=== PATIENT | male | born 1945 | race Caucasian/White ===

== ENCOUNTER → 2017-08-15 | Day surgery (SDC) | payer MEDICARE ==
[~2017-08-15] MED LIST: AMLODIPINE BESY10 MG PO; CARVEDILOL3.125 MG PO; CYCLOBENZAPRINE10 MG PO; EPHEDRINE SULFATE INJ 50 MG/10 ML SYR ONE; FENTANYL CITRATE/PF 100MCG/2 ML INJ ONE; FLUOXETINE HCL20 MG PO; GENERLAC10 GM/15 M; HYOSCYAMINE SULFATE 0.5 MG/ML AMP ONE; ISOSORBIDE MONO30 MG PO; LEVOTHYROXINE100 MC1 PO; LOSARTAN POTAS100 MG PO; LOVASTATIN40 MG PO; METFORMIN HCL500 MG PO; MIDAZOLAM HCL 2 MG/2 ML VIAL ONE; PHENYLEPHRINE HCL 1% 10 MG/ML VIAL ONE; PROPOFOL IV EMULSION 10 MG/ML 50 ML VIAL ONE; TAMSULOSIN HCL0.4 MG PO; VENTOLIN HFA18 GM
[2017-08-15 11:09] LABS: BASOPHILS # (AUTO) 0.1 (0.0-0.1); BASOPHILS % 0.8 % (0.0-1.0); EOSINOPHILS # (AUTO) 0.1 (0.0-0.4); EOSINOPHILS % 1.1 % (0.0-6.0); HEMATOCRIT 35.8 % (38.2-49.6); HEMOGLOBIN 10.6 g/dL (14.0-18.0); LYMPHOCYTES # (AUTO) 2.1 (1.0-3.2); LYMPHOCYTES % 24.8 % (18.0-39.1); MEAN CORPUSCULAR HEMOGLOBIN 25.5 pg (28-32); MEAN CORPUSCULAR HGB CONC 29.6 g/dL (31-35); MEAN CORPUSCULAR VOLUME 86.1 fL (81-99); MONOCYTES # (AUTO) 0.7 (0.2-0.8); MONOCYTES % 8.7 % (4.4-11.3); NEUTROPHILS # (AUTO) 5.4 (2.1-6.9); NEUTROPHILS % 63.9 % (38.7-80.0); PLATELET COUNT 498 x10e3/uL (140-360); RED BLOOD COUNT 4.16 x10e6/uL (4.3-5.7); RED CELL DISTRIBUTION WIDTH 17.2 % (11.7-14.4)
--- NOTE | 2017-08-15 13:12 | Operative Report ---
DATE OF PROCEDURE: August 15, 2017 REFERRING PHYSICIAN: Dr. Jay Lepe PROCEDURES PERFORMED 1. Esophagogastroduodenoscopy with biopsies. 2. Colonoscopy with polypectomy. INDICATIONS FOR EGD: Heartburn, indigestion. INDICATIONS FOR COLONOSCOPY: Colorectal cancer screening, anemia. MEDICATION: Patient was done under MAC. Please see anesthesiologist's note. PROCEDURE: With the patient in the left lateral decubitus position, the flexible fiberoptic Olympus gastroscope was introduced into the esophagus under direct visualization without any difficulty. There was some patchy erythema noted in the distal esophagus. The scope was then advanced with ease into the stomach, traversing a large hiatal hernia measured at 5 cm. The mucosa overlying the antrum revealed some patchy erythema and mild to moderate edema, and biopsies were obtained and sent to stain for H. pylori. Gastric ulcer was noted approximately 6 mm in size, and that was biopsied. Also, an erosion was noted in the body of the stomach without active bleeding. The pylorus was of normal contour and shape. It was intubated with ease, and the scope was advanced all the way to the 2nd portion of the duodenum. The scope was then withdrawn slowly. Mucosa overlying the proximal 2nd portion and the duodenal bulb appeared to be within normal limits. The scope was then withdrawn back into the stomach and retroflexed, and the previously described hiatal hernia was also noted in the retroflexed position. The scope was then straightened out. The stomach was decompressed. Scope was subsequently withdrawn. Patient tolerated the procedure well. IMPRESSION 1. Distal esophagitis. 2. Large, approximately 5 cm, hiatal hernia. 3. Gastritis, biopsied. Biopsies sent to stain for H. pylori. 4. Gastric ulcer, body, without active bleeding, biopsied. PLAN: Follow up histology. Initiate Protonix 40 mg 1 p.o. q.a.m. a.c. The patient was then turned around. After adequate lubrication of the anal canal, a flexible fiberoptic Olympus colonoscope was inserted into the rectum with ease and advanced all the way to the cecum. The mucosa overlying the cecum appeared to be within normal limits. The scope was then withdrawn slowly. One polyp was snared and 1 polyp was hot biopsied from the ascending colon. The transverse grossly appeared to be within normal limits. One polyp was snared from the descending colon. Diverticular disease was noted to involve the distal descending and the sigmoid colon. One polyp was snared from the sigmoid colon. The rectum appeared to be within normal limits. The scope was then retroflexed into the distal rectum, and moderate-size internal hemorrhoids were noted, none of which was actively bleeding. The scope was then straightened out. It was subsequently withdrawn. Patient tolerated the procedure well. IMPRESSION 1. Ascending colon polyp times 2, one snared and one hot biopsied. 2. Descending colon polyp times 1, snared. 3. Diverticulosis. 4. Sigmoid colon polyp times 1, snared. 5. Internal hemorrhoids, none actively bleeding. PLAN: Follow up histology. Initiate high-fiber, low-fat diet. Initiate high-fiber supplement. Patient will need to have a followup colonoscopy in 3 years. Job#: [id number] cc:JONNY LEPE DO
== END | disposition home or self-care (01) ==
LOC: ENDO 10:14
PROVIDERS: ATTEND Internal Medicine Gastroenterology
DX: K21.9 Gastro-esophageal reflux disease without esophagitis (principal); D12.2 Benign neoplasm of ascending colon; D12.4 Benign neoplasm of descending colon; K29.70 Gastritis, unspecified, without bleeding; K25.9 Gastric ulcer, unspecified as acute or chronic, without hemorrhage or perforation; K20.9 Esophagitis, unspecified; K44.9 Diaphragmatic hernia without obstruction or gangrene; K57.30 Diverticulosis of large intestine without perforation or abscess without bleeding; K64.8 Other hemorrhoids; D64.9 Anemia, unspecified; M19.90 Unspecified osteoarthritis, unspecified site; J45.909 Unspecified asthma, uncomplicated; I10 Essential (primary) hypertension; I25.810 Atherosclerosis of coronary artery bypass graft(s) without angina pectoris; E11.9 Type 2 diabetes mellitus without complications; E03.9 Hypothyroidism, unspecified; N40.0 Benign prostatic hyperplasia without lower urinary tract symptoms; I25.2 Old myocardial infarction; F32.9 Major depressive disorder, single episode, unspecified; Z95.1 Presence of aortocoronary bypass graft; Z96.651 Presence of right artificial knee joint
CPT/HCPCS: 36415; 43239; 45384; 45385; 82948; 85025; 93005; J1980; J2250; J2370

== ENCOUNTER 2017-08-26 06:16 | Inpatient (IN) | payer MEDICARE ==
[2017-08-23 09:31] LABS: BASOPHILS # (AUTO) 0.1 (0.0-0.1); BASOPHILS % 0.6 % (0.0-1.0); EOSINOPHILS # (AUTO) 0.1 (0.0-0.4); EOSINOPHILS % 1.3 % (0.0-6.0); HEMATOCRIT 31.8 % (38.2-49.6); HEMOGLOBIN 9.5 g/dL (14.0-18.0); LYMPHOCYTES # (AUTO) 1.9 (1.0-3.2); LYMPHOCYTES % 20.7 % (18.0-39.1); MEAN CORPUSCULAR HEMOGLOBIN 25.3 pg (28-32); MEAN CORPUSCULAR HGB CONC 29.9 g/dL (31-35); MEAN CORPUSCULAR VOLUME 84.6 fL (81-99); MONOCYTES # (AUTO) 0.6 (0.2-0.8); MONOCYTES % 6.9 % (4.4-11.3); NEUTROPHILS # (AUTO) 6.5 (2.1-6.9); PLATELET COUNT 365 x10e3/uL (140-360); RED BLOOD COUNT 3.76 x10e6/uL (4.3-5.7); RED CELL DISTRIBUTION WIDTH 16.9 % (11.7-14.4)
[2017-08-23 09:55] LABS: ALANINE AMINOTRANSFERASE 9 IU/L (0-55); ALBUMIN/GLOBULIN RATIO 0.8 (0.8-2.0); ALKALINE PHOSPHATASE 56 IU/L (40-150); ANION GAP 16.3 mmol/L (8-16); BLOOD UREA NITROGEN 12 mg/dL (7-26); BUN/CREATININE RATIO 13 (6-25); CALCIUM 8.5 mg/dL (8.4-10.2); CARBON DIOXIDE 24 mmol/L (22-29); CHLORIDE 109 mmol/L (98-107); CHOL/HDL RATIO 2.3 (3.9-4.7); CHOLESTEROL 128 MD/DL (0-199); CREATININE, SERUM 0.92 mg/dL (0.72-1.25); EST GLOMERULAR FILTRATION RATE > 60 ML/MIN (60-); GLUCOSE 143 mg/dL (74-118); HDL CHOLESTEROL 55 MG/DL (40-60); LDL CHOLESTEROL 53 MG/DL (60-130); POTASSIUM 4.3 mmol/L (3.5-5.1); SODIUM 145 mmol/L (136-145); TRIGLYCERIDES 99 MG/DL (0-149)
[~2017-08-26] VITALS: Ht 170.2 cm; Wt 85.3 kg
[~2017-08-26 06:16] MED LIST changes: -EPHEDRINE SULFATE INJ 50 MG/10 ML SYR ONE; -FENTANYL CITRATE/PF 100MCG/2 ML INJ ONE; -HYOSCYAMINE SULFATE 0.5 MG/ML AMP ONE; -MIDAZOLAM HCL 2 MG/2 ML VIAL ONE; -PHENYLEPHRINE HCL 1% 10 MG/ML VIAL ONE; -PROPOFOL IV EMULSION 10 MG/ML 50 ML VIAL ONE
[2017-08-26 06:32] VITALS: BP 121/74
[2017-08-26] MEDS ORDERED: HEPARIN SOD (PORCINE) 1000 UNIT/ML 30ML ONE (07:00)
[2017-08-26] MEDS ORDERED: LIDOCAINE HCL 2% LOCAL 20 ML VIAL ONE ×2 (07:00→08:09)
[2017-08-26] MEDS ORDERED: NITROGLYCERIN/D5W 200 MCG/ML 250 ML ONE (07:01)
[2017-08-26] MEDS ORDERED: SODIUM CHLORIDE 0.9% 1000ML 1,000 ML ONE (07:01)
[2017-08-26] MEDS ORDERED: HEPARIN SOD/SOD CHLORIDE 2,000 ML ONE (07:01)
[2017-08-26] MEDS ORDERED: IOPAMIDOL 370 MG/ML 200 ML INFUS..BTL INJ ONE ×2 (07:01→08:18)
[2017-08-26 07:02] VITALS: BP 121/74
[2017-08-26] MEDS ORDERED: ALPRAZOLAM 0.5 MG TAB ONE (07:10)
[2017-08-26] MEDS ORDERED: DIPHENHYDRAMINE HCL 25 MG CAP ONE (07:10)
[2017-08-26] MEDS ORDERED: ALPRAZOLAM 0.5 MG TAB PO ONE (07:15)
[2017-08-26] MEDS ORDERED: DIPHENHYDRAMINE HCL 25 MG CAP PO ONE (07:15)
[2017-08-26] MEDS ORDERED: MIDAZOLAM HCL 2 MG/2 ML VIAL ONE ×2 (07:47→08:13)
[2017-08-26] MEDS ORDERED: FENTANYL CITRATE/PF 100MCG/2 ML INJ ONE (07:47)
[2017-08-26] MEDS ORDERED: HYDROCODONE/APAP 5MG-325MG TAB PO PRN (08:45)
[2017-08-26] MEDS ORDERED: MORPHINE SULFATE 4 MG/ML SYR IV PRN (08:45)
[2017-08-26] MEDS ORDERED: ONDANSETRON HCL INJ 2 MG/ML VIAL IV PRN (08:45)
[2017-08-26] MEDS ORDERED: ALBUTEROL SULFATE HFA 8GM INHALATION AEROSOL INH PRN (08:45)
[2017-08-26] MEDS ORDERED: ACETAMINOPHEN 325 MG TAB PO PRN (08:45)
[2017-08-26] MEDS: METFORMIN HCL 500 MG TAB PO SCH ×2 (09:00→17:29)
[2017-08-26] MEDS: CARVEDILOL 3.125 MG TAB PO SCH ×2 (09:00→17:29)
[2017-08-26] MEDS: LEVOTHYROXINE SODIUM 100 MCG/VIAL IV SCH (09:00)
[2017-08-26] MEDS ORDERED: MORPHINE SULFATE 2 MG/ML SYR IV PRN (09:00)
--- NOTE | 2017-08-26 10:39 | Operative Report ---
DATE OF PROCEDURE: August 26, 2017 INDICATIONS: Coronary artery disease with acute abnormal stress test and fgqif-td-ntypnyp systolic heart failure. PROCEDURES PERFORMED 1. Left heart catheterization. 2. Selective coronary angiography. 3. Selective cannulation of 1 arterial and 3 venous bypass conduits. 4. Deployment of right groin Perclose. COMPLICATIONS: None. RECOMMENDATIONS: AICD placement. Access was obtained in the right femoral artery. A 6-Amharic sheath was placed. Diagnostic coronary angiogram revealed patent left main. Left anterior descending artery is occluded proximally. Circumflex had mild disease. Obtuse marginal branches were occluded. Right coronary artery had a long tubular mid 50% stenosis with excellent flow. The left internal mammary artery bypass to the left anterior descending artery was patent. However, squaxin vessel had diffuse disease. Saphenous vein bypass graft to obtuse marginal branch was widely patent. Two saphenous vein bypasses were occluded. Right groin repaired using Perclose. Patient admitted to the hospital for AICD placement. Job#: [id number] OR
[2017-08-26] MEDS: AMLODIPINE BESYLATE 10 MG TAB PO SCH (17:28)
[2017-08-26] MEDS: FLUOXETINE HCL 20 MG CAP PO SCH (17:28)
[2017-08-26] MEDS: CYCLOBENZAPRINE HCL 10 MG TAB PO SCH (17:28)
[2017-08-26] MEDS: TAMSULOSIN HCL 0.4 MG CAP PO SCH (17:28)
[2017-08-26] MEDS: LOSARTAN POTASSIUM 100 MG TAB PO SCH (17:28)
[2017-08-26] MEDS: ISOSORBIDE MONONITRATE 30 MG TAB CR PO SCH (17:28)
[2017-08-26 20:00] VITALS: BP 119/73
[2017-08-26 20:07] VITALS: BP 121/55
[2017-08-26] MEDS: SIMVASTATIN 20 MG TAB PO SCH (20:55)
[2017-08-26] MEDS: ZOLPIDEM TARTRATE 5 MG TAB PO PRN (20:55)
--- NOTE | 2017-08-26 21:12 | Consultation ---
DATE OF CONSULTATION: August 26, 2017 REFERRING PHYSICIAN: Dr. Raza. REASON FOR CONSULTATION: Cardiomyopathy, consider a defibrillator. HISTORY OF PRESENT ILLNESS: This is a 72-year-old gentleman with history of hypertension, diabetes mellitus, history of coronary artery disease, status post bypass surgery in . He had a myocardial infarction in 2009 and underwent second coronary bypass surgery in 2009, congestive heart failure class 3 with dyspnea with minimal exertion and also, chronic ischemic cardiomyopathy with ejection fraction 28%. He underwent heart catheterization by Dr. Raza. There was no recommendation for percutaneous coronary intervention. We were consulted to consider a defibrillator. The patient also has chronic left bundle branch block with QRS duration 140 milliseconds. Denies chest pain. Denies syncope or cardiac arrest. REVIEW OF SYSTEMS: CONSTITUTIONAL: Negative. CARDIOVASCULAR: As per HPI. RESPIRATORY: Negative. GASTROINTESTINAL: Negative. GENITOURINARY: Negative. MUSCULOSKELETAL: Negative. EYES: Negative. ENT: Negative. ALLERGY/IMMUNOLOGY: Negative. PSYCHIATRIC: Negative. PAST MEDICAL HISTORY: Hypertension, cardiomyopathy. PAST SURGICAL HISTORY: Coronary bypass surgery in 2009. FAMILY HISTORY: No premature coronary artery disease. SOCIAL HISTORY: No smoking, alcohol or illicit drugs. PHYSICAL EXAMINATION VITAL SIGNS: Blood pressure 130/60, pulse 70, respirations 20, O2 sat 98%. GENERAL: In no acute distress. HEENT: Moist mucous membranes. CARDIOVASCULAR: Regular. RESPIRATORY: Clear bilaterally. ABDOMEN: Soft, nontender. MUSCULOSKELETAL: 2+ distal pulses. NEUROLOGIC: No focal deficits. SKIN: No lesions. PSYCHIATRIC: Normal thought process. EKG sinus rhythm, left bundle branch block. IMPRESSION 1. Chronic ischemic cardiomyopathy, ejection fraction 28%, refractory to medical therapy. 2. Congestive heart failure, class 3. He is on beta blockers and ARB. 3. Left bundle branch block. 4. History of myocardial infarction in 2009, coronary bypass surgery in 2009. RECOMMENDATIONS: Had a long discussion with the patient. He has indication for ICD for primary prevention of sudden cardiac , also SAWMILL WORKER. The procedure was explained in detail with benefits and risks. The patient voices understanding and wishes to proceed. Will plan for a biventricular cardiac defibrillator. Thank you for letting us participate in Mr. Agustin's health care. Job#: [id number]
[2017-08-27] VITALS (7 sets, daily range): BP systolic 101–141; BP diastolic 55–82
[2017-08-27 06:50] LABS: BASOPHILS # (AUTO) 0.1 (0.0-0.1); BASOPHILS % 0.6 % (0.0-1.0); EOSINOPHILS # (AUTO) 0.1 (0.0-0.4); EOSINOPHILS % 0.7 % (0.0-6.0); HEMATOCRIT 28.1 % (38.2-49.6); HEMOGLOBIN 8.5 g/dL (14.0-18.0); LYMPHOCYTES # (AUTO) 1.5 (1.0-3.2); LYMPHOCYTES % 18.2 % (18.0-39.1); MEAN CORPUSCULAR HEMOGLOBIN 25.1 pg (28-32); MEAN CORPUSCULAR HGB CONC 30.2 g/dL (31-35); MEAN CORPUSCULAR VOLUME 82.9 fL (81-99); MONOCYTES # (AUTO) 0.9 (0.2-0.8); MONOCYTES % 10.9 % (4.4-11.3); NEUTROPHILS # (AUTO) 5.8 (2.1-6.9); PLATELET COUNT 296 x10e3/uL (140-360); RED BLOOD COUNT 3.39 x10e6/uL (4.3-5.7); RED CELL DISTRIBUTION WIDTH 16.8 % (11.7-14.4)
[2017-08-27 07:10] LABS: ANION GAP 13.7 mmol/L (8-16); BLOOD UREA NITROGEN 12 mg/dL (7-26); BUN/CREATININE RATIO 13 (6-25); CALCIUM 8.4 mg/dL (8.4-10.2); CARBON DIOXIDE 24 mmol/L (22-29); CHLORIDE 105 mmol/L (98-107); CREATININE, SERUM 0.91 mg/dL (0.72-1.25); EST GLOMERULAR FILTRATION RATE > 60 ML/MIN (60-); GLUCOSE 142 mg/dL (74-118); POTASSIUM 3.7 mmol/L (3.5-5.1); SODIUM 139 mmol/L (136-145)
[2017-08-27] MEDS: METFORMIN HCL 500 MG TAB PO SCH ×2 (08:00→17:54)
[2017-08-27] MEDS: CARVEDILOL 3.125 MG TAB PO SCH ×2 (09:00→17:54)
[2017-08-27] MEDS: AMLODIPINE BESYLATE 10 MG TAB PO SCH (09:00)
[2017-08-27] MEDS: ISOSORBIDE MONONITRATE 30 MG TAB CR PO SCH (09:00)
[2017-08-27] MEDS: CYCLOBENZAPRINE HCL 10 MG TAB PO SCH (10:25)
[2017-08-27] MEDS: TAMSULOSIN HCL 0.4 MG CAP PO SCH (10:25)
[2017-08-27] MEDS: LOSARTAN POTASSIUM 100 MG TAB PO SCH (10:25)
[2017-08-27] MEDS: FLUOXETINE HCL 20 MG CAP PO SCH (10:26)
[2017-08-27] MEDS: LEVOTHYROXINE SODIUM 100 MCG/VIAL IV SCH (11:59)
[2017-08-27] MEDS ORDERED: BACITRACIN 50,000 UNIT VIAL ONE (14:53)
[2017-08-27] MEDS ORDERED: MIDAZOLAM HCL 2 MG/2 ML VIAL ONE ×3 (14:53→16:29)
[2017-08-27] MEDS ORDERED: FENTANYL CITRATE/PF 100MCG/2 ML INJ ONE ×2 (14:53→16:29)
[2017-08-27] MEDS ORDERED: SODIUM CHLORIDE 0.9% 500ML 500 ML ONE (14:54)
[2017-08-27] MEDS ORDERED: SODIUM CHLORIDE 0.9% 1000ML 2,000 ML ONE (14:54)
[2017-08-27] MEDS ORDERED: LIDOCAINE HCL 2% LOCAL 20 ML VIAL ONE ×2 (14:54→15:43)
[2017-08-27] MEDS ORDERED: HEPARIN SOD/SOD CHLORIDE 1,000 ML ONE (15:18)
[2017-08-27] MEDS ORDERED: IOPAMIDOL 370 MG/ML 200 ML INFUS..BTL INJ ONE (15:25)
[2017-08-27] MEDS ORDERED: VANCOMYCIN 1GM/NS 250 ML 250 ML ONE (15:28)
--- NOTE | 2017-08-27 16:13 | Progress Note ---
DATE: August 27, 2017 CARDIOLOGY PROGRESS NOTE: SUBJECTIVE: Mr. Agustin feels better. His shortness of breath is improving. OBJECTIVE VITAL SIGNS: Afebrile. Heart rate 84. Blood pressure 112/78. O2 sat is 96%. CARDIOVASCULAR: Regular rhythm. Systolic murmur. S3 gallop. LUNGS: Occasional crackles at bilateral bases. CARDIOVASCULAR MEDICATIONS: Reviewed. Telemetry shows sinus rhythm with PVCs. Hemoglobin is 8.5. Serum creatinine is normal. ASSESSMENT: Acute on chronic systolic heart failure with coronary artery disease. PLAN: Biventricular AICD placement today for cardiac resynchronization. Current cardiac medications are appropriate. Maintain on telemetry. Anemia workup as an outpatient. Job#: [id number] EV
[2017-08-27] MEDS: SIMVASTATIN 20 MG TAB PO SCH (20:47)
[2017-08-27] MEDS: ZOLPIDEM TARTRATE 5 MG TAB PO PRN (20:48)
[2017-08-28] VITALS: BP 137/89
[2017-08-28 00:25] VITALS: BP 125/70
[2017-08-28 04:00] VITALS: BP 129/75
[2017-08-28 07:30] VITALS: BP 137/90
[2017-08-28 08:00] VITALS: BP 137/90
[2017-08-28] MEDS: METFORMIN HCL 500 MG TAB PO SCH (08:00)
[2017-08-28] MEDS: CARVEDILOL 3.125 MG TAB PO SCH (09:00)
[2017-08-28] MEDS: LOSARTAN POTASSIUM 100 MG TAB PO SCH (09:00)
[2017-08-28] MEDS: CYCLOBENZAPRINE HCL 10 MG TAB PO SCH (09:00)
[2017-08-28] MEDS: LEVOTHYROXINE SODIUM 100 MCG/VIAL IV SCH (09:00)
[2017-08-28] MEDS: FLUOXETINE HCL 20 MG CAP PO SCH (09:00)
[2017-08-28] MEDS: AMLODIPINE BESYLATE 10 MG TAB PO SCH (09:00)
[2017-08-28] MEDS: ISOSORBIDE MONONITRATE 30 MG TAB CR PO SCH (09:00)
[2017-08-28] MEDS: TAMSULOSIN HCL 0.4 MG CAP PO SCH (09:00)
[2017-08-28 12:00] VITALS: BP 122/82
--- NOTE | 2017-08-28 14:47 | Discharge Summary ---
ADMISSION DIAGNOSIS: Fjtac-rq-[id number] systolic heart failure. DISCHARGE DIAGNOSIS: Ujvjz-mt-tggtglb systolic heart failure. COMORBID CONDITIONS 1. Coronary artery disease, status post coronary artery bypass graft x2. 2. Hypertension. CONSULTATION: Electrophysiology, Dr. Hudson. PROCEDURES 1. Cardiac catheterization. 2. Biventricular implantable cardioverter-defibrillator implantation. HISTORY OF PRESENT ILLNESS AND HOSPITAL COURSE: This is a 72-year-old man with history of hypertension, diabetes, coronary artery disease status post redo CABG, and chronic systolic heart failure, who was admitted with edwaa-rv-hsebhla systolic heart failure. He underwent cardiac catheterization without recommendations for revascularization. EP was consulted for AICD implantation, which he had this admission without complications. He was discharged home in stable condition the following day after ICD interrogation with normal function. FOLLOWUP 1. Dr. Raza in [address] Hudson in 2 weeks. MEDICATIONS: Please see discharge medication list. RESTRICTIONS: Arm restrictions per EP. DIET: Heart-healthy low-sodium diabetic diet. PHYSICAL EXAMINATION VITAL SIGNS: Reviewed. GENERAL: Awake, alert, in no acute distress. LUNGS: Clear to auscultation bilaterally. No wheezes or crackles. CARDIOVASCULAR: Normal rate, regular rhythm. No murmur. Normal S1 and S2. ABDOMEN: Soft, nontender. EXTREMITIES: 2+ pitting edema. TELEMETRY: V-paced. NEREIDA MORELAND MD Job#: [id number] EV
--- NOTE | 2017-08-28 15:28 | Operative Report ---
DATE OF PROCEDURE: August 27, 2017 POSTOPERATIVE DIAGNOSES 1. Ischemic cardiomyopathy, ejection fraction 25 to 30%, refractory to medical therapy. 2. Congestive heart failure, class 3. 3. Left bundle branch block. 4. History of myocardial infarction 2009. 5. History of coronary artery bypass surgery, 2009. POSTOPERATIVE DIAGNOSES 1. Ischemic cardiomyopathy, ejection fraction 25 to 30%, refractory to medical therapy. 2. Congestive heart failure, class 3. 3. Left bundle branch block. 4. History of myocardial infarction 2009. 5. History of coronary artery bypass surgery, 2009. PROCEDURES PERFORMED: Biventricular cardiac defibrillator implant. ESTIMATED BLOOD LOSS: 5 mL. COMPLICATIONS: None. DESCRIPTION OF PROCEDURE: After informed consent was obtained, patient was brought to the electrophysiology laboratory in a fasting, nonsedated state. Area over his chest was prepped and draped in the usual sterile fashion. Moderate sedation and prophylactic antibiotic were given. Lidocaine 1% was used as local anesthetic, and a 3-cm skin incision was made in the left subclavicular area. Electrocautery, sharp, and blunt dissection were used to reach the muscular fascia, and a pocket was created for eventual implantation of the device. Vascular access was obtained times 3 in the left axillary vein using modified Seldinger technique under fluoroscopic guidance. The 6-Bahraini, 9-Bahraini, and 9.5-Bahraini sheaths were placed. The ventricular lead advanced to the RV apex. R-wave 6, pacing 0.5 at 0.5. Coronary sinus was successfully cannulated using AL2 catheter and Wholey wire. CS angiogram showed a good posterolateral branch, successfully cannulated, and the lead was advanced and placed in this branch. The patient's threshold 0.8 at 0.5, impedance 700. The atrial lead to the right atrial appendage P wave 3.5, pacing 0.6 at 0.5, impedance 597. Old sheaths were removed from the body. Leads were secured to fascia using 0 silk. Pocket was irrigated with antibiotic solution using pulse mechanical engineer. Hemostasis was meticulous. Leads were connected to the device and the entire ICD system placed in the pocket. Incision was closed using Vicryl and Dermabond. Patient tolerated the procedure well. Procedure deemed complete. SUMMARY OF HARDWARE IMPLANTED 1. The new defibrillator is [employer], model #G158, [id number]. 2. The atrial lead is [employer], 7740, [id number]. 3. The right ventricular lead is [employer], 8470, [id number]. 4. The left ventricular lead is [employer], 4884, 201634. IMPRESSION: Successful biventricular cardiac defibrillator implant. PLAN 1. Routine postop monitoring in telemetry bed. 2. Chest x-ray. 3. Followup in 2 weeks. Job#: [id number] CF MTDD
== END 2017-08-28 12:29 | disposition home or self-care (01) | DRG 223 ==
LOC: CATH LAB 06:16 → MED/SURG3 16:05
PROVIDERS: ADMIT Internal Medicine Interventional Cardiology; ATTEND Internal Medicine Interventional Cardiology
PROC: 4A023N7 Measurement of Cardiac Sampling and Pressure, Left Heart, Percutaneous Approach (ICD-10-PCS; 2017-08-26)
PROC: B2111ZZ Fluoroscopy of Multiple Coronary Arteries using Low Osmolar Contrast (ICD-10-PCS; 2017-08-26)
PROC: B2181ZZ Fluoroscopy of Left Internal Mammary Bypass Graft using Low Osmolar Contrast (ICD-10-PCS; 2017-08-26)
PROC: B2131ZZ Fluoroscopy of Multiple Coronary Artery Bypass Grafts using Low Osmolar Contrast (ICD-10-PCS; 2017-08-26)
PROC: 0JH609Z Insertion of Cardiac Resynchronization Defibrillator Pulse Generator into Chest Subcutaneous Tissue and Fascia, Open Approach (ICD-10-PCS; principal; 2017-08-28)
PROC: 02HK3KZ Insertion of Defibrillator Lead into Right Ventricle, Percutaneous Approach (ICD-10-PCS; 2017-08-28)
PROC: 02H63KZ Insertion of Defibrillator Lead into Right Atrium, Percutaneous Approach (ICD-10-PCS; 2017-08-28)
PROC: 02HL3KZ Insertion of Defibrillator Lead into Left Ventricle, Percutaneous Approach (ICD-10-PCS; 2017-08-28)
DX: I11.0 Hypertensive heart disease with heart failure (principal); I44.7 Left bundle-branch block, unspecified; E11.9 Type 2 diabetes mellitus without complications; I25.5 Ischemic cardiomyopathy; I25.10 Atherosclerotic heart disease of native coronary artery without angina pectoris; I50.23 Acute on chronic systolic (congestive) heart failure; Z95.1 Presence of aortocoronary bypass graft; J45.909 Unspecified asthma, uncomplicated; I25.2 Old myocardial infarction; M19.90 Unspecified osteoarthritis, unspecified site; Z88.0 Allergy status to penicillin; Z28.21 Immunization not carried out because of patient refusal
CPT/HCPCS: 33224; 33231; 36140; 36415; 77001; 77002; 80048; 80053; 80061; 82948; 85025; 93459; C1769; J1644; J2001; J2250; J3370; J7030; J7040; Q9967

== ENCOUNTER 2017-11-09 11:38 | Emergency (ER) | payer MEDICARE ==
[~2017-11-09] VITALS: Ht 170.2 cm; Wt 85.3 kg
--- OUTSIDE RECORDS SUMMARY | 2017-11-09 11:41 | XMS REPORT | Continuity of Care Document ---
Author Author [facility] Organization [facility] Address [address] [place] [address] Phone Unavailable Care Team Providers Care Tsa Screener Name Role Phone JONNY LEPE DO PCP Insurance Providers Guarantor Dillan Agustin Address [address] [phone] Email NA Payer [employer] Medicare Complete Policy Number [id number] Subscriber's Name Dillan Agustin Relationship 18 Self / Same As Patient Group Number [id number] Effective Date 17 Advance Directives Directive Response Recorded Date/Time Does the patient have an advance directive? No 08/26/17 8:01pm If yes, is advance directive on file with [facility]? No 08/26/17 8:01pm If not on file with [facility] will patient provide a copy? No 08/26/17 8:01pm Do you have a Directive to Physician? No 08/23/17 8:56am Do you have a Medical Power of Dude Wrangler? No 08/23/17 8:56am Do you have an out of hospital Do Not Resuscitate Order? No 08/23/17 8:56am Do you have any special needs we should be aware of? No 08/23/17 8:56am Do you have a support person here with you today? Yes 08/23/17 8:56am Did patient receive Notice of Privacy Practices? Yes 08/23/17 8:56am Did patient receive patient rights and responsibilities? Yes 08/23/17 8:56am Problems No problem information available. Medications Current Home Medications Medication Dose Units Route Directions Days Qty Instructions Start Date Albuterol Sulfate (Ventolin Hfa) 18 Gm Hfa.aer.ad As Needed Amlodipine Besylate 10 Mg Tablet 10 Mg Oral Daily 30 Tab Carvedilol 3.125 Mg Tablet 6.25 Mg Oral Twice A Day 60 Tab Cyclobenzaprine Hcl 10 Mg Tablet 5 Mg Oral Daily Fluoxetine Hcl 20 Mg Capsule 40 Mg Oral Daily 30 Cap Isosorbide Mononitrate (Isosorbide Mononitrate Er) 30 Mg Tab.er.24h 30 Mg Oral Daily 30 Tab Lactulose (Generlac) 10 Gm/15 Ml Solution As Needed Levothyroxine Sodium 100 Mcg Vial 100 Mcg Oral Daily Losartan Potassium 100 Mg Tablet 100 Mg Oral Daily Lovastatin 40 Mg Tablet 1 Tab Oral Daily THERAPEUTICALLY SUBSTITUTED WITH SIMVASTATIN 20MG Metformin Hcl 500 Mg Tablet 500 Mg Oral Twice A Day 60 Tab Tamsulosin Hcl 0.4 Mg Cap.er.24h 0.4 Mg Oral Daily Social History Social History Problem Response Recorded Date/Time Onset Date Status Hx Psychiatric Problems No 08/26/2017 8:01pm Not Applicable Not Applicable Hx Eating Disorder No 08/26/2017 8:01pm Not Applicable Not Applicable Hx Substance Use Disorder No 08/26/2017 8:01pm Not Applicable Not Applicable Hx Depression No 08/26/2017 8:01pm Not Applicable Not Applicable Hx Alcohol Use No 08/26/2017 8:01pm Not Applicable Not Applicable Hx Substance Use Treatment No 08/26/2017 8:01pm Not Applicable Not Applicable Hx Physical Abuse No 08/26/2017 8:01pm Not Applicable Not Applicable Smoking Status Start Date Stop Date Former smoker Hospital Discharge Instructions No hospital discharge instruction information available. Plan of Care Discharge Date 08/28/17 12:29pm Disposition HOME, SELF-CARE Instructions/Education Provided Pacemaker Prescriptions See Medication Section Referrals ADARSH YIN MD (Cardiology) Entered Date: 08/28/2017 9:51am Address: [facility] [address] [place] [address] Additional Instructions/Education NO HEAVY LIFTING,KEEP DRSG IN PLACE FOR ONE WEEK Functional Status Query Response Date Recorded Assistive Devices None August 26, 2017 8:07pm Ambulation Ability Standby Assistance 1 person assist August 26, 2017 8:07pm Toileting Ability Minimum Assistance August 27, 2017 6:43pm Allergies, Adverse Reactions, Alerts Allergen Type Severity Reaction Status Last Updated Penicillin Allergy Unknown Active 08/23/17 Immunizations No immunization information available. Vital Signs Acute Vital Signs Vital Response Date/Time Temperature (Fahrenheit) 98.6 degrees F (97.6 - 99.5) 08/28/2017 12:00pm Pulse Pulse Rate (adult) 98 bpm (60 - 90) 08/28/2017 12:00pm Respiratory Rate 20 bpm (12 - 24) 08/28/2017 12:00pm Blood Pressure 122/82 mm Hg 08/28/2017 12:00pm Height 5 ft 7 in 08/23/2017 9:27am Weight 188 lb 08/23/2017 9:27am Body Mass Index 29.4 kg/m^2 08/26/2017 8:01pm Results Laboratory Results Test Name Result Units Flags Reference Collection Date/Time Result Date/ Time Comments White Blood Count 8.42 x10e3/uL 4.8-10.8 08/27/2017 6:33am 08/27/2017 6 :52am Red Blood Count 3.39 x10e6/uL L 4.3-5.7 08/27/2017 6:33am 08/27/2017 6: 52am Hemoglobin 8.5 g/dL L 14.0-18.0 08/27/2017 6:33am 08/27/2017 6:52am Hematocrit 28.1 % L 38.2-49.6 08/27/2017 6:33am 08/27/2017 6:52am Mean Corpuscular Volume 82.9 fL 81-99 08/27/2017 6:33am 08/27/2017 6: 52am Mean Corpuscular Hemoglobin 25.1 pg L 28-32 08/27/2017 6:33am 2017 6:52am Mean Corpuscular Hemoglobin Concent 30.2 g/dL L 31-35 08/27/2017 6:33am 08/27/2017 6:52am Red Cell Distribution Width 16.8 % H 11.7-14.4 08/27/2017 6:332017 6:52am Platelet Count 296 x10e3/uL 140-360 08/27/2017 6:08/27/2017 6: 52am Neutrophils (%) (Auto) 69.0 % 38.7-80.0 08/27/2017 6:08/27/2017 6: 52am Lymphocytes (%) (Auto) 18.2 % 18.0-39.1 08/27/2017 6:08/27/2017 6: 52am Monocytes (%) (Auto) 10.9 % 4.4-11.3 08/27/2017 6:08/27/2017 6: 52am Eosinophils (%) (Auto) 0.7 % 0.0-6.0 08/27/2017 6:08/27/2017 6: 52am Basophils (%) (Auto) 0.6 % 0.0-1.0 08/27/2017 6:08/27/2017 6:52am IM GRANULOCYTES % 0.6 % 0.0-1.0 08/27/2017 6:08/27/2017 6:52am Neutrophils # (Auto) 5.8 2.1-6.9 08/27/2017 6:08/27/2017 6:52am Lymphocytes # (Auto) 1.5 1.0-3.2 08/27/2017 6:08/27/2017 6:52am Monocytes # (Auto) 0.9 H 0.2-0.8 08/27/2017 6:08/27/2017 6:52am Eosinophils # (Auto) 0.1 0.0-0.4 08/27/2017 6:am 08/27/2017 6:52am Basophils # (Auto) 0.1 0.0-0.1 08/27/2017 6:08/27/2017 6:52am Absolute Immature Granulocyte (auto 0.05 x10e3/uL 0-0.1 08/27/2017 6: 33am 08/27/2017 6:52am Sodium Level 139 mmol/L 136-145 08/27/2017 6:08/27/2017 7:12am Potassium Level 3.7 mmol/L 3.5-5.1 08/27/2017 6:33am 08/27/2017 7:12am Chloride Level 105 mmol/L 98-107 08/27/2017 6:33am 08/27/2017 7:12am Carbon Dioxide Level 24 mmol/L 22-29 08/27/2017 6:33am 08/27/2017 7: 12am Anion Gap 13.7 mmol/L 8-16 08/27/2017 6:33am 08/27/2017 7:12am Blood Urea Nitrogen 12 mg/dL 7-08/27/2017 6:33am 08/27/2017 7:12am Creatinine 0.91 mg/dL 0.72-1.25 08/27/2017 6:33am 08/27/2017 7:12am BUN/Creatinine Ratio 13 608/27/2017 6:33am 08/27/2017 7:12am Estimat Glomerular Filtration Rate > 60 ML/MIN 60- 08/27/2017 6:33 7:12am Ranges were taken from the National Kidney Disease Education Program and the National Kidney Foundation literature. Reference ranges: 60 or greater: Normal 16-59 (for 3 consecutive months): Chronic kidney disease 15 or less: Kidney failure Glucose Level 142 mg/dL H 74-118 08/27/2017 6:33am 08/27/2017 7:12am Calcium Level 8.4 mg/dL 8.4-10.2 08/27/2017 6:33am 08/27/2017 7:12am Bedside Glucose 168 mg/dL H 70-120 08/28/2017 11:20am 08/28/2017 11: 55am Meter ID: [id number] Total Bilirubin 0.5 mg/dL 0.2-1.2 08/23/2017 9:27am 08/23/2017 10:00am Aspartate Amino Transf (AST/SGOT) 16 IU/L 5-34 08/23/2017 9:27am 2017 10:00am Alanine Aminotransferase (ALT/SGPT) 9 IU/L 0-55 08/23/2017 9:27am 08/23 10:00am Total Protein 7.0 g/dL 6.5-8.1 08/23/2017 9:27am 08/23/2017 10:00am Albumin 3.0 g/dL L 3.5-5.0 08/23/2017 9:27am 08/23/2017 10:00am Globulin 4.0 g/dL H 2.3-3.5 08/23/2017 9:27am 08/23/2017 10:00am Albumin/Globulin Ratio 0.8 0.8-2.0 08/23/2017 9:27am 08/23/2017 10: 00am Alkaline Phosphatase 56 IU/L 40-150 08/23/2017 9:27am 08/23/2017 10: 00am Triglycerides Level 99 MG/DL 0-149 08/23/2017 9:27am 08/23/2017 10: 00am Cholesterol Level 128 MD/DL 0-199 08/23/2017 9:27am 08/23/2017 10:00am Less than 200 mg/dL Low Risk 201 - 239 mg/dL Borderline Risk 240 mg/dl and greater High Risk LDL Cholesterol 53 MG/DL L 60-130 08/23/2017 9:27am 08/23/2017 10:00am HDL Cholesterol 55 MG/DL 40-60 08/23/2017 9:27am 08/23/2017 10:00am Cholesterol/HDL Ratio 2.3 L 3.9-4.7 08/23/2017 9:27am 08/23/2017 10: 00am Procedures Procedure Status Date Provider(s) EGD BIOPSY SINGLE/MULTIPLE Completed 08/15/17 BRIANNA ALLAN MD COLONOSCOPY W/LESION REMOVAL Completed 08/15/17 BRIANNA ALLAN MD COLONOSCOPY W/LESION REMOVAL Completed 08/15/17 BRIANNA ALLAN MD Encounters Encounter Location Arrival/Admit Date Discharge/Depart Date Attending Provider Discharged Inpatient [facility] 08/26/17 4:05pm 08/28/17 12:29pm ADARSH YIN MD Registered Surgical Day Care [facility] 08/15/17 10:14am BRIANNA ALLAN MD
[2017-11-09] MEDS ORDERED: ONDANSETRON HCL INJ 2 MG/ML VIAL IV STA (11:42)
[2017-11-09] MEDS ORDERED: ONDANSETRON HCL 4 MG ORAL DISINTEGRATING TAB ONE (12:11)
--- NOTE | 2017-11-09 12:29 | Diagnostic Imaging Report ---
EXAMINATION: CHEST SINGLE (PORTABLE) INDICATION: Shortness of breath nausea after workout COMPARISON: None FINDINGS: AP view TUBES and LINES: AICD is intact. With 3 leads. Median sternotomy wires and mediastinal clips. LUNGS: Lungs are well inflated. There are bibasilar atelectasis. There is mild prominence of the central pulmonary vasculature, consistent with pulmonary venous congestion. PLEURA: No pleural effusion or pneumothorax. HEART AND MEDIASTINUM: Cardiac size is mildly enlarged. BONES AND SOFT TISSUES: No acute osseous lesion. Soft tissues are unremarkable. UPPER ABDOMEN: No free air under the diaphragm. IMPRESSION: Mild central pulmonary venous congestion. Mild cardiomegaly. Signed by: Dr. Joaquin Valera M.D. on 11/09/2017 12:25 PM
[2017-11-09 12:32] LABS: BASOPHILS # (AUTO) 0.1 (0.0-0.1); BASOPHILS % 0.9 % (0.0-1.0); EOSINOPHILS # (AUTO) 0.1 (0.0-0.4); EOSINOPHILS % 1.6 % (0.0-6.0); HEMATOCRIT 36.1 % (38.2-49.6); HEMOGLOBIN 10.7 g/dL (14.0-18.0); LYMPHOCYTES # (AUTO) 1.5 (1.0-3.2); LYMPHOCYTES % 26.4 % (18.0-39.1); MEAN CORPUSCULAR HGB CONC 29.6 g/dL (31-35); MEAN CORPUSCULAR VOLUME 80.9 fL (81-99); MONOCYTES # (AUTO) 0.4 (0.2-0.8); MONOCYTES % 6.6 % (4.4-11.3); NEUTROPHILS # (AUTO) 3.6 (2.1-6.9); PLATELET COUNT 152 x10e3/uL (140-360); RED BLOOD COUNT 4.46 x10e6/uL (4.3-5.7); RED CELL DISTRIBUTION WIDTH 20.3 % (11.7-14.4)
[2017-11-09 12:47] LABS: ALANINE AMINOTRANSFERASE 15 IU/L (0-55); ALBUMIN 3.6 g/dL (3.5-5.0); ALKALINE PHOSPHATASE 56 IU/L (40-150); ANION GAP 18.4 mmol/L (8-16); BLOOD UREA NITROGEN 14 mg/dL (7-26); BUN/CREATININE RATIO 14 (6-25); CALCIUM 9.5 mg/dL (8.4-10.2); CARBON DIOXIDE 16 mmol/L (22-29); CHLORIDE 109 mmol/L (98-107); CREATINE KINASE 67 IU/L (30-200); EST GLOMERULAR FILTRATION RATE > 60 ML/MIN (60-); GLUCOSE 155 mg/dL (74-118); POTASSIUM 4.4 mmol/L (3.5-5.1); SODIUM 139 mmol/L (136-145)
[2017-11-09] MEDS ORDERED: ONDANSETRON HCL 4 MG ORAL DISINTEGRATING TAB PO ONE (13:00)
== END 2017-11-09 17:12 | disposition home or self-care (01) ==
LOC: ER 11:41
DX: R55 Syncope and collapse (principal); R11.0 Nausea; I95.89 Other hypotension; I42.0 Dilated cardiomyopathy; Z95.810 Presence of automatic (implantable) cardiac defibrillator
CPT/HCPCS: 36415; 71045; 80053; 82550; 82553; 82948; 83880; 84484; 85025; 93005; 99284

== ENCOUNTER 2019-02-04 05:39 | Inpatient (IN) | payer MEDICARE ==
[2019-02-02 10:25] LABS: BASOPHILS # (AUTO) 0.1 (0.0-0.1); BASOPHILS % 0.9 % (0.0-1.0); EOSINOPHILS # (AUTO) 0.1 (0.0-0.4); EOSINOPHILS % 1.8 % (0.0-6.0); HEMATOCRIT 36.8 % (38.2-49.6); HEMOGLOBIN 11.9 g/dL (14.0-18.0); LYMPHOCYTES # (AUTO) 1.2 (1.0-3.2); LYMPHOCYTES % 22.4 % (18.0-39.1); MEAN CORPUSCULAR HEMOGLOBIN 29.9 pg (28-32); MEAN CORPUSCULAR HGB CONC 32.3 g/dL (31-35); MEAN CORPUSCULAR VOLUME 92.5 fL (81-99); MONOCYTES # (AUTO) 0.4 (0.2-0.8); MONOCYTES % 8.1 % (4.4-11.3); NEUTROPHILS # (AUTO) 3.6 (2.1-6.9); NEUTROPHILS % 66.4 % (38.7-80.0); PLATELET COUNT 210 x10e3/uL (140-360); RED BLOOD COUNT 3.98 x10e6/uL (4.3-5.7); RED CELL DISTRIBUTION WIDTH 14.6 % (11.7-14.4)
[2019-02-02 10:46] LABS: ANION GAP 15.6 mmol/L (8-16); BLOOD UREA NITROGEN 14 mg/dL (7-26); BUN/CREATININE RATIO 13 (6-25); CALCIUM 8.5 mg/dL (8.4-10.2); CARBON DIOXIDE 26 mmol/L (22-29); CHLORIDE 106 mmol/L (98-107); CREATININE, SERUM 1.09 mg/dL (0.72-1.25); EST GLOMERULAR FILTRATION RATE > 60 ML/MIN (60-); GLUCOSE 163 mg/dL (74-118); POTASSIUM 3.6 mmol/L (3.5-5.1); SODIUM 144 mmol/L (136-145)
--- NOTE | 2019-02-02 12:06 | Diagnostic Imaging Report ---
EXAMINATION: CHEST 2 VIEWS INDICATION: Pre-operative COMPARISON: Chest radiograph of 11/09/2017 FINDINGS: TUBES and LINES: Left chest AICD with leads projecting over the right atrium and right ventricle. LUNGS: The lungs are moderately inflated. No focal consolidation or pulmonary edema. Scattered calcified granulomas bilaterally, measuring up to 9 mm. PLEURA: No pleural effusion or pneumothorax. HEART AND MEDIASTINUM: Postoperative findings of CABG with intact sternotomy wires. BONES AND SOFT TISSUES: No acute fracture or dislocation. UPPER ABDOMEN: No free air under the diaphragm. IMPRESSION: No focal pneumonia or pulmonary edema. Signed by: Eugenia Betts MD on 02/02/2019 12:03 PM
[~2019-02-04] VITALS: Ht 170.2 cm; Wt 91.6 kg
[~2019-02-04 05:39] MED LIST changes: +ACETAMINOPHEN325 M1 PO; +ASPIRIN81 MG PO; +CALCIUM MG ZINC; +PANTOPRAZOLE SO40 MG PO; -VENTOLIN HFA18 GM; +VENTOLIN HFA18 GM INH; +[UNRECOGNIZED DRUG - MIXTURE] PO
--- OUTSIDE RECORDS SUMMARY | 2019-02-04 05:42 | XMS REPORT ---
Author Author [facility] Address Unknown Phone Unavailable Care Team Providers Care Dentist Name Role Phone WILLIE MONTESINOS Unavailable Unavailable Marcelle WALKER Unavailable Unavailable Problems This patient has no known problems. Allergies, Adverse Reactions, Alerts This patient has no known allergies or adverse reactions. Medications This patient has no known medications. Results Test Description Test Time Test Comments Text Results Atomic Results Result Comments CHEST 2 VIEWS 2019-02-02 12:01:00 [facility] [address] [place] [address] Patient Name: MATY TERRY MR #: [id number] : 1945 Age/Sex: 73/M Req #: [id number] Adm Physician: Ordered by: WILLIE MONTESINOS MD Report #: [id number] Location: OR Room/Bed: Procedure: [id number] DX/CHEST 2 VIEWS Exam Date: 02/02/19 Exam Time: 1032 REPORT STATUS: Signed EXAMINATION: CHEST 2 VIEWS INDICATION: Pre-operative COMPARISON: Chest radiograph of 11/09/2017 FINDINGS: TUBES and LINES: Left chest AICD with leads projecting over the right atrium and right ventricle. LUNGS: The lungs are moderately inflated. No focal consolidation or pulmonary edema. Scattered calcified granulomas bilaterally, measuring up to 9 mm. PLEURA: No pleural effusion or pneumothorax. HEART AND MEDIASTINUM: Postoperative findings of CABG with intact sternotomy wires. BONES AND SOFT TISSUES: No acute fracture or dislocation. UPPER ABDOMEN: No free air under the diaphragm. IMPRESSION: No focal pneumonia or pulmonary edema. Signed by: Blaze Ibrahim MD on 02/02/2019 12:03 PM Dictated By: BLAZE IBRAHIM MD 120 Transcribed By: JERSEY on 02/02/19 1203 COPY TO: WILLIE MONTESINOS MD CHEST SINGLE (PORTABLE) [place] [address] Patient Name: MATY TERRY MR #: [id number] : 1945 Age/Sex: 72/M Req #: [id number] Adm Physician: Ordered by: JENNY WALKER MD Report #: [id number] Location: ER Room/Bed: Procedure: [id number] DX/CHEST SINGLE (PORTABLE) Exam Date: 11/09/17 Exam Time: 1215 REPORT STATUS: Signed EXAMINATION: CHEST SINGLE (PORTABLE) INDICATION: Shortness of breath nausea after workout COMPARISON: None FINDINGS: AP view TUBES and LINES: AICD is intact. With 3 leads. Median sternotomy wires and mediastinal clips. LUNGS: Lungs are well inflated. There are bibasilar atelectasis. There is mild prominence of the central pulmonary vasculature, consistent with pulmonary venous congestion. PLEURA: No pleural effusion or pneumothorax. HEART AND MEDIASTINUM: Cardiac size is mildly enlarged. BONES AND SOFT TISSUES: No acute osseous lesion. Soft tissues are unremarkable. UPPER ABDOMEN: No free air under the diaphragm. IMPRESSION: Mild central pulmonary venous congestion. Mild cardiomegaly. Signed by: Dr. Kali Calderon M.D. on 11/09/2017 12:25 PM Dictated By: KALI CALDERON MD 1225 Transcribed By: JERSEY on 11/09/17 1225 COPY TO: JENNY WALKER MD
[2019-02-04] MEDS ORDERED: SODIUM CHLORIDE 0.9% 1000ML 1,000 ML ONE (06:23)
[2019-02-04] MEDS ORDERED: GENTAMICIN 80MG/NS 100 ML 200 ML IV ONE (06:23)
[2019-02-04] MEDS ORDERED: LEVOFLOXACIN 500MG/D5W 100ML 100 ML IV ONE (06:23)
[2019-02-04] MEDS ORDERED: B&O 60MG R/S 60 MG SUPP PR ONE (06:45)
[2019-02-04] MEDS ORDERED: IOPAMIDOL 610MG/1ML 300 MG/ML VIAL IV ONE (06:45)
--- NOTE | 2019-02-04 07:05 | NUR ---
SPIRITUAL CARE - Pre-Surgery Assessment: Pt in bed. Pt reported supportive attention from family and friends. Intervention: I provided pastoral presence, hospitality, sympathetic listening, and prayer. I acquainted pt with availability of superior court clerk while hospitalized. Outcome: Pt expressed appreciation for visit. No need for follow up indicated at this time. AHMET [facility] Spiritual Care Department O: [phone] Pager: [phone] ([phone] number calling from)
[2019-02-04] MEDS ORDERED: ALBUTEROL SULF 0.083% NEB SOLN 3 ML NEB ONE (10:40)
[2019-02-04] MEDS ORDERED: DIPHENHYDRAMINE HCL 25 MG CAP PO PRN (10:45)
[2019-02-04] MEDS ORDERED: SODIUM CHLORIDE 0.9% 250ML IRRIG IR SCH (10:45)
[2019-02-04] MEDS ORDERED: ONDANSETRON HCL INJ 2MG/ML 2ML 2 MG/ML VIAL IV PRN (10:45)
[2019-02-04] MEDS ORDERED: B&O 60MG R/S 60 MG SUPP PR PRN (10:45)
--- NOTE | 2019-02-04 11:26 | NUR ---
Patient admitted to unit from PACU. Patient is post op TURP. Patient has a macias catheter in place with CBI infusing. Urine noted to be clear with a slight pink tinge. No c/o pain. Lung field auscultated and wheezing noted. Bowel sounds present x4 but hypoactive. Left AICD noted to chest wall. Patient on telemetry at this time. Right hand IV in place with IV fluids infusing. No s/s of distress noted
[2019-02-04 12:05] VITALS: BP 112/82
[2019-02-04 12:59] VITALS: BP 112/82
[2019-02-04] MEDS: ACETAMINOPHEN/CODEINE 300MG - 30MG TAB PO PRN ×2 (13:36→20:15)
[2019-02-04] MEDS: PHENAZOPYRIDINE HCL 100 MG TAB PO SCH ×2 (13:36→17:24)
[2019-02-04] MEDS: LEVOFLOXACIN 500MG/D5W 100ML 100 ML IV SCH (13:36)
[2019-02-04] MEDS: D5.45%NS/KCL 20MEQ 1,000 ML IV SCH ×2 (13:37→17:25)
[2019-02-04] MEDS ORDERED: FENTANYL CITRATE/PF 100MCG/2 ML INJ ONE (14:03)
[2019-02-04 14:14] LABS: BASOPHILS % 0.4 % (0.0-1.0); EOSINOPHILS % 0.2 % (0.0-6.0); HEMOGLOBIN 11.6 g/dL (14.0-18.0); LYMPHOCYTES % 21.1 % (18.0-39.1); MEAN CORPUSCULAR HEMOGLOBIN 29.2 pg (28-32); MEAN CORPUSCULAR HGB CONC 31.4 g/dL (31-35); MEAN CORPUSCULAR VOLUME 93.2 fL (81-99); MONOCYTES # (AUTO) 0.1 (0.2-0.8); MONOCYTES % 2.3 % (4.4-11.3); NEUTROPHILS # (AUTO) 3.6 (2.1-6.9); NEUTROPHILS % 75.4 % (38.7-80.0); PLATELET COUNT 205 x10e3/uL (140-360); RED BLOOD COUNT 3.97 x10e6/uL (4.3-5.7); RED CELL DISTRIBUTION WIDTH 14.5 % (11.7-14.4)
[2019-02-04 14:38] LABS: ANION GAP 14.4 mmol/L (8-16); BLOOD UREA NITROGEN 20 mg/dL (7-26); BUN/CREATININE RATIO 23 (6-25); CALCIUM 8.3 mg/dL (8.4-10.2); CARBON DIOXIDE 25 mmol/L (22-29); CHLORIDE 107 mmol/L (98-107); CREATININE, SERUM 0.88 mg/dL (0.72-1.25); EST GLOMERULAR FILTRATION RATE > 60 ML/MIN (60-); GLUCOSE 128 mg/dL (74-118); POTASSIUM 4.4 mmol/L (3.5-5.1); SODIUM 142 mmol/L (136-145)
[2019-02-04] MEDS ORDERED: EPHEDRINE SULFATE INJ 50 MG/10 ML SYR ONE (14:55)
[2019-02-04] MEDS ORDERED: ONDANSETRON HCL INJ 2MG/ML 2ML 2 MG/ML VIAL ONE (14:55)
[2019-02-04] MEDS ORDERED: DEXAMETHASONE SOD PHOS INJ 4 MG/ML VIAL ONE (14:55)
[2019-02-04] MEDS ORDERED: SEVOFLURANE INHAL SOLN 250 ML PEN BTL ONE (14:55)
[2019-02-04] MEDS ORDERED: ROCURONIUM BROMIDE 10 MG/ML 5ML VIAL ONE (14:55)
[2019-02-04] MEDS ORDERED: PROPOFOL IV EMULSION 10 MG/ML 20 ML VIAL ONE (14:55)
[2019-02-04] MEDS ORDERED: LIDOCAINE HCL 2% LOCAL INJ 5 ML SDV VIAL INJ ONE (14:55)
[2019-02-04] MEDS ORDERED: ALBUTEROL SULFATE HFA 8GM INHALATION AEROSOL INH PRN (16:30)
[2019-02-04] MEDS ORDERED: SYNTHROID112 MCG PO (16:31)
[2019-02-04 16:32] VITALS: BP 116/86
[2019-02-04] MEDS ORDERED: CARVEDILOL 3.125 MG TAB PO SCH (17:00)
[2019-02-04] MEDS ORDERED: [UNRECOGNIZED DRUG - OTHER] PO SCH (17:00)
[2019-02-04] MEDS: DOCUSATE SODIUM 100 MG CAP PO SCH (17:24)
[2019-02-04] MEDS: PANTOPRAZOLE SOD 40 MG TABEC PO SCH (17:24)
[2019-02-04] MEDS: CARVEDILOL 12.5 MG TAB PO SCH (17:25)
[2019-02-04] MEDS ORDERED: AMIODARONE HCL200 MG PO (19:17)
[2019-02-04 19:49] VITALS: BP 129/89
[2019-02-04 19:57] VITALS: BP 129/89
[2019-02-04] MEDS: AMIODARONE HCL 200 MG TAB PO SCH (20:14)
[2019-02-04] MEDS ORDERED: TAMSULOSIN HCL 0.4 MG CAP PO SCH (21:00)
[2019-02-05] VITALS: BP 124/82
[2019-02-05] MEDS: D5.45%NS/KCL 20MEQ 1,000 ML IV SCH ×2 (02:38→08:07)
[2019-02-05] MEDS ORDERED: LEVOTHYROXINE SODIUM 112 MCG TAB PO SCH (06:00)
[2019-02-05 06:19] LABS: HEMATOCRIT 34.5 % (38.2-49.6); HEMOGLOBIN 10.9 g/dL (14.0-18.0); LYMPHOCYTES # (AUTO) 0.8 (1.0-3.2); LYMPHOCYTES % 11.2 % (18.0-39.1); MEAN CORPUSCULAR HEMOGLOBIN 29.5 pg (28-32); MEAN CORPUSCULAR HGB CONC 31.6 g/dL (31-35); MEAN CORPUSCULAR VOLUME 93.2 fL (81-99); MONOCYTES # (AUTO) 0.5 (0.2-0.8); MONOCYTES % 6.4 % (4.4-11.3); NEUTROPHILS # (AUTO) 6.1 (2.1-6.9); NEUTROPHILS % 81.7 % (38.7-80.0); PLATELET COUNT 196 x10e3/uL (140-360); RED CELL DISTRIBUTION WIDTH 14.6 % (11.7-14.4)
[2019-02-05 06:44] LABS: ANION GAP 14.5 mmol/L (8-16); BLOOD UREA NITROGEN 21 mg/dL (7-26); BUN/CREATININE RATIO 23 (6-25); CALCIUM 8.4 mg/dL (8.4-10.2); CARBON DIOXIDE 23 mmol/L (22-29); CHLORIDE 105 mmol/L (98-107); EST GLOMERULAR FILTRATION RATE > 60 ML/MIN (60-); GLUCOSE 154 mg/dL (74-118); POTASSIUM 4.5 mmol/L (3.5-5.1); SODIUM 138 mmol/L (136-145)
--- NOTE | 2019-02-05 07:45 | NUR ---
RECEIVED PATIENT AWAKE RESTING IN BED NO S/S OF DISTRESS. BED LOW, WHEELS LOCKED, SIDE RAILS X2. CALL LIGHT IN REACH WILL CONTINUE TO MONITOR PATIENT.
[2019-02-05 07:52] VITALS: BP 142/85
[2019-02-05] MEDS: PANTOPRAZOLE SOD 40 MG TABEC PO SCH (08:06)
[2019-02-05] MEDS: PHENAZOPYRIDINE HCL 100 MG TAB PO SCH ×2 (08:06→12:48)
[2019-02-05] MEDS: CARVEDILOL 12.5 MG TAB PO SCH (08:06)
[2019-02-05] MEDS: AMIODARONE HCL 200 MG TAB PO SCH (08:06)
[2019-02-05] MEDS: DOCUSATE SODIUM 100 MG CAP PO SCH (08:06)
--- NOTE | 2019-02-05 08:45 | NUR ---
PATIENT A/O X3, EVEN RESPIRATIONS ON RA. BOWEL SOUNDS ACTIVE, SKIN INTACT, NO EDEMA. MONTEZ IN PLACE WITH CBI. URINE DARK YELLOW. RIGHT HAND 20 GAUGE IV WITH IVF @ 100 CC/HR. VITAL SIGNS STABLE. NO PAIN OR DISCOMFORT AT THIS TIME. CALL LIGHT IN REACH. WILL CONTINUE TO MONITOR PATIENT.
[2019-02-05] MEDS ORDERED: AMLODIPINE BESYLATE 10 MG TAB PO SCH (09:00)
[2019-02-05] MEDS ORDERED: ISOSORBIDE MONONITRATE 30 MG TAB CR PO SCH (09:00)
[2019-02-05] MEDS ORDERED: LOSARTAN POTASSIUM 100 MG TAB PO SCH (09:00)
[2019-02-05 09:37] LABS: LYMPHOCYTES % (MANUAL) 9 % (19-48); MONOCYTES % (MANUAL) 6 % (3.4-9.0); NEUTROPHILS % (MANUAL) 85 % (40-74)
[2019-02-05 09:38] LABS: PLATELET ESTIMATE ADEQUATE; PLATELET MORPHOLOGY COMMENT NORMAL; RBC MORPHOLOGY COMMENT NORMAL
[2019-02-05] MEDS ORDERED: ONDANSETRON HCL 4 MG ORAL DISINTEGRATING TAB PO PRN (10:15)
[2019-02-05 10:37] VITALS: BP 142/85
[2019-02-05] MEDS ORDERED: TYLENOL WITH C1 EACH PO (12:36)
[2019-02-05] MEDS ORDERED: LEVAQUIN500 MG PO (12:36)
[2019-02-05 12:45] VITALS: BP 122/74
[2019-02-05] MEDS: LEVOFLOXACIN 500MG/D5W 100ML 100 ML IV SCH (12:48)
--- NOTE | 2019-02-05 13:35 | NUR ---
REMOVED PATIENTS IV. CATHETER TIP INTACT AND PRESSURE DRESSING APPLIED.
--- NOTE | 2019-02-05 13:47 | NUR ---
PATIENT DISCHARGED FROM FACILITY. PATIENT GATHERED ALL PERSONAL BELONGINGS, DISCHARGE INSTRUCTIONS, AND FOLLOW UP INFORMATION. PATIENT LEFT UNIT IN WHEELCHAIR AND WENT HOME VIA PRIVATE AUTO. NO SIGNS OF DISTRESS WHEN LEAVING FACILITY.
--- NOTE | 2019-03-04 15:22 | Discharge Summary ---
CHIEF COMPLAINT: Observation post elective TURP. FINAL DIAGNOSES: 1. Status post transurethral resection of prostate. 2. Anemia due to blood loss. 3. Questionable diabetes type 2. 4. Coronary artery disease. DISPOSITION: Home. HOSPITAL COURSE: A 73-year-old male, known history of hypertension, bronchial asthma, osteoarthritis, underwent elective TURP and it was felt to be beneficial to keep the patient overnight for observation, complains of pain in the penis. No chest pains or shortness of breath. He does have history of coronary artery disease. The patient has a Cardoza in place. He will be on observation 24 hours status post TURP. Benign prostatic hypertrophy, coronary artery disease, hypertension, bronchial asthma. With the 24 hours observation, we will be monitoring the patient's H and H. Home medications will continue except for blood thinners for now. The patient was on the Med-Surg floor postprocedure, was on a regular diet. The hematuria was improving. He is on IV fluids, IV antibiotics, daily medications were continuing. Arrangements were being made to discontinue the Cardoza. Continued to do well. No new complaints. Laboratory studies stable. The patient was cleared for discharge and was released home on 02/05/2019, in stable condition. He will be continuing to follow up with Dr. Biswas as outpatient. IVs were discontinued at the time of discharge and will be discharged with Cardoza in place. IMAGING: Chest x-ray shows no focal pneumonia or pulmonary edema. LABORATORY STUDIES: CBC with normal white count. H and H are 11.9 and 36.8. Followup CBCs show stable white counts, H and H fell to a final study of 10.9 and 34.5, and platelets remained stable. Chemistries on the patient show stable electrolytes. Kidney function stable. Glucose 163. Followup chemistries remained stable. Blood sugars were as low as 128. Final blood sugar was 154. He was cleared for discharge and was released to home. We will continue on his current diet, maintained on his Cardoza catheter for now. No drains were needed. Activity level as directed by myself as well as by Dr. Biswas. The patient will be following up with his PCP within 7-10 days, following back up with Dr. Biswas in his office per directed. We continued on: 1. Acetaminophen 1500 mg p.o. p.r.n. for 5 days. 2. Tylenol No. 3 300 mg tablet p.o. q.4 hours p.r.n. for pain. 3. Ventolin HFA 18 g inhaler once daily p.r.n. for shortness of breath. 4. Amiodarone 200 mg p.o. q.12. 5. Amlodipine besylate 10 mg p.o. daily. 6. Aspirin 81 mg chewable daily. 7. Carvedilol 25 mg p.o. b.i.d. 8. Isosorbide mononitrate 30 mg p.o. daily. 9. Levaquin 500 mg p.o. daily for 7 days. 10. Synthroid 112 mcg p.o. 11. Losartan potassium 100 mg p.o. daily. 12. Protonix 40 mg p.o. daily. 13. Tamsulosin 0.4 mg p.o. daily. 14. Calcium magnesium zinc one tablet daily. The patient has any urinary difficulties while at home, he will be contacting Dr. Biswas. The patient remained stable, will be following up with Dr. Biswas outpatient for appointment basis as well as following up with his PCP on appointment basis. Dictated by TADEO Gamble MD JOSE Chou/EZE /[id number]
--- NOTE | 2019-04-15 06:38 | Operative Report ---
DATE OF PROCEDURE: 02/04/2019 SURGEON: Dewayne Biswas MD PREOPERATIVE DIAGNOSES: 1. Urinary retention. 2. Obstructive benign prostatic hyperplasia. POSTOPERATIVE DIAGNOSES: 1. Urinary retention. 2. Obstructive benign prostatic hyperplasia. 3. Prostatic urethral lesion. OPERATIONS PERFORMED: 1. Cystourethroscopy with bilateral ureteral catheterization and retrograde ureteropyelography (procedure performed for the urinary retention to evaluate the upper tracts. 2. Interpretation of retrograde ureteropyelography. 3. Supervision of fluoroscopy, no radiologist present. 4. Cystourethroscopy with transurethral resection of small prostatic urethral lesion (surgery performed for the diagnosis of his lesion. 5. Cystourethroscopy with transurethral resection of the prostate (surgery performed utilizing the plasma button electrode). ANESTHESIA: General. COMPLICATIONS: None. CLINICAL SUMMARY: Dillan Agustin is a 73-year-old man with obstructive BPH. He had a previous transurethral microwave thermotherapy in 2011. The patient was brought to the operating room for transurethral resection having had urinary retention. The patient had previous prostate biopsies, which were negative. The patient understands risks of bleeding, infection, injury to adjacent structures, incontinence, impotence, retrograde ejaculation, need for additional procedures and elected to proceed. OPERATIVE PROCEDURE IN DETAIL: Informed consent was verified. Dillan Agustin was properly identified and taken to the operating room, placed on the cystoscopy table in supine position. Anesthesia was uneventfully begun. The patient was then carefully gently repositioned in dorsal lithotomy position with all pressure points well padded. His genitalia were prepared and draped in usual sterile fashion. The cystoscope sheath with a visual obturator in place, was atraumatically inserted into the patient's urethra, it was guided down the unremarkable distal urethra through some wide caliber, probably not clinically significant stricture bands at the bulbar region. We went through the normal sphincteric region into the patient's prostate bed and just proximal to the verumontanum. There was abnormal appearing mucosa. We entered the patient's bladder and drained it. Panendoscopy revealed no suspicious mucosal lesions within the bladder. There were no suspicious tumors, trabeculations were noted. Normally positioned configured ureteral orifices were identified. An 8-Slovenian catheter was used to cannulate each ureter and retrograde ureteropyelograms were performed. Interpretation of retrograde ureteropyelography contrast was instilled in retrograde fashion bilaterally. There were no tumors, no stones, no diverticula. Unobstructed drainage was observed bilaterally fluoroscopically. There was some ptosis of the right kidney. Cold cup biopsy forceps were then utilized to resect this abnormal appearing lesion in the prostatic urethra and it was sent for histopathological analysis. The cystoscope was withdrawn. The resectoscope was then placed atraumatically utilizing an obturator. We then proceeded with utilizing the plasma button electrode to resect the patient's prostate from the bladder neck tube, but never passed the verumontanum. This also limited at the base of the prostatic urethral lesion that we resected. Once we resected down the surgical capsule, pinpoint electrocautery was utilized to achieve hemostasis. The resectoscope was then withdrawn. Cardoza catheter was placed. It was irrigated to and fro to ensure it is working properly. He was placed on continuous irrigation with a clear efflux. A belladonna and opium suppository were placed revealing a large prostate, smooth and non-fluctuant without any nodules. The patient was then uneventfully reversed from anesthesia and taken to recovery room in stable condition. There were no complications to the procedure. He tolerated the procedure well. We will proceed with routine postoperative care and ongoing urological followup. On Followup appointments in the office, we will perform additional uroflowmetry and bladder ultrasonography to re-evaluate his voiding following surgery. Dewayne Biswas MD [place]/EZE /[id number] cc: Cristo Bledsoe DO
== END 2019-02-05 13:47 | disposition home or self-care (01) | DRG 714 ==
LOC: OR 05:39 → PACU V 10:41 → MED/SURG 11:27
PROC: BT141ZZ Fluoroscopy of Kidneys, Ureters and Bladder using Low Osmolar Contrast (ICD-10-PCS; 2019-02-04)
PROC: 0VB08ZZ Excision of Prostate, Via Natural or Artificial Opening Endoscopic (ICD-10-PCS; principal; 2019-02-04 09:10)
PROC: 0TBD8ZZ Excision of Urethra, Via Natural or Artificial Opening Endoscopic (ICD-10-PCS; 2019-02-04 09:10)
PROC: 0T788ZZ Dilation of Bilateral Ureters, Via Natural or Artificial Opening Endoscopic (ICD-10-PCS; 2019-02-04 09:10)
DX: N40.1 Benign prostatic hyperplasia with lower urinary tract symptoms (principal); R33.8 Other retention of urine; I25.10 Atherosclerotic heart disease of native coronary artery without angina pectoris; I10 Essential (primary) hypertension; J45.909 Unspecified asthma, uncomplicated; K21.9 Gastro-esophageal reflux disease without esophagitis; Z95.1 Presence of aortocoronary bypass graft; I48.91 Unspecified atrial fibrillation; Z79.01 Long term (current) use of anticoagulants
CPT/HCPCS: 36415; 71046; 74420; 80048; 83735; 85025; 88305; 88342; 93005; J1100; J1580; J1956; J2001; J2405; J3010; J7030

== ENCOUNTER → 2019-03-18 | Outpatient (CLI) | payer MEDICARE ==
[~2019-03-18] MED LIST changes: +AMIODARONE HCL200 MG PO; +LEVAQUIN500 MG PO; +SYNTHROID112 MCG PO; +TYLENOL WITH C1 EACH PO
--- NOTE | 2019-03-18 11:31 | Diagnostic Imaging Report ---
Exam: PA and lateral chest radiograph Clinical history: Pneumonia, shortness of breath Comparison: February 02, 2019 Findings: There is no evidence of pulmonary consolidation, pleural effusion, or pneumothorax. The cardiac size is mildly prominent. The left subclavian transvenous pacemaker appears unchanged in position. The regional osseous structures are unremarkable. Impression: 1. Mild cardiomegaly, otherwise, no radiographic evidence of acute cardiorespiratory disease. Signed by: Dr. Jose Diaz MD on 03/18/2019 11:27 AM
== END ==
LOC: RAD 09:56
PROVIDERS: ATTEND Internal Medicine Interventional Cardiology
DX: R06.02 Shortness of breath (principal); J18.9 Pneumonia, unspecified organism; I51.7 Cardiomegaly
CPT/HCPCS: 71046

== ENCOUNTER → 2019-04-24 | Outpatient (CLI) | payer MEDICARE ==
[~2019-04-24] MED LIST changes: +IOPAMIDOL 370 MG/ML 200 ML INFUS..BTL INJ ONE; +SODIUM CHLORIDE 0.9% 50ML 50 ML ONE
[2019-04-24 10:56] LABS: BLOOD UREA NITROGEN 18 mg/dL (7-26); BUN/CREATININE RATIO 17 (6-25); CREATININE, SERUM 1.06 mg/dL (0.72-1.25); EST GLOMERULAR FILTRATION RATE > 60 ML/MIN (60-)
--- NOTE | 2019-04-24 12:37 | Diagnostic Imaging Report ---
EXAM: CT Abdomen and Pelvis WITH intravenous contrast INDICATION: Prostate cancer COMPARISON: None. TECHNIQUE: Abdomen and pelvis were scanned utilizing a multidetector helical scanner from the lung base to the pubic symphysis after administration of IV contrast. Coronal and sagittal reformations were obtained. Routine protocol was performed. Scan was performed during portal venous phase. IV CONTRAST: 100mL of Isovue 370 ORAL CONTRAST: Water RADIATION DOSE: Total DLP: 658.0 mGy*cm Dose modulation, iterative reconstruction, and/or weight based adjustment of the mA/kV was utilized to reduce the radiation dose to as low as reasonably achievable. FINDINGS: LOWER THORAX: Partially visualized pacemaker leads. Moderate sliding hiatal hernia with masslike thickening of the gastroesophageal junction. HEPATOBILIARY: Mild diffuse hepatic steatosis. Simple cysts in the right and left liver, the largest of which measures up to 3 cm in segment 6. No other focal liver lesion. No biliary ductal dilation. Unremarkable gallbladder. SPLEEN: No splenomegaly. PANCREAS: No ductal dilation. Along the body of the pancreas, there are 2 cystic lesions measuring 1.0 and 1.1 cm, likely representing side branch intraductal papillary mucinous neoplasm. ADRENALS: No adrenal nodules. KIDNEYS/URETERS: No hydronephrosis, stones, or solid mass lesions. Left lower pole exophytic 1.5 cm simple cyst. PELVIC ORGANS/BLADDER: Hypodensity at the prostatic urethra, correlate with history of transurethral prostate resection. PERITONEUM / RETROPERITONEUM: No free air or fluid. LYMPH NODES: No lymphadenopathy. VESSELS: Atherosclerotic calcifications of the nonaneurysmal abdominal aorta and major branches. GI TRACT: Sigmoid and descending colon diverticulosis without CT evidence of diverticulitis. No abnormal bowel wall thickening. No bowel obstruction. BONES AND SOFT TISSUES: Diffuse osteopenia and degenerative changes of the visualized spine. Age-indeterminate compression fracture of the superior endplate of L1. Grade 1 retrolisthesis at T12-L1. Grade 1 retrolisthesis at L4-5. Rate 1 anterolisthesis at L5-S1. No suspicious lytic or blastic lesions. IMPRESSION: Moderate sliding hiatal hernia with masslike thickening of the gastroesophageal junction. Recommend endoscopy for further evaluation. Cystic lesions of the pancreas likely represent side branch intraductal papillary mucinous neoplasms. No associated ductal dilation. No suspicious lytic or blastic bony lesions. Age indeterminate superior endplate of L1 compression fracture. Multilevel degenerative changes and osteopenia as above. Signed by: Eugenia Betts MD on 04/24/2019 12:34 PM
--- NOTE | 2019-04-24 16:45 | Diagnostic Imaging Report ---
Bone Scan, delayed phase INDICATION: C61 Malignant neoplasm of prostate. 74 M with prostate cancer diagnosed 5 years ago. Concern for neoplasm in urinary tract. COMPARISON: CT abdo/pelvis 07/25/2018 REPORT: Approximately 3 hours following intravenous administration of 27.5 mCi of Tc-99m MDP, delayed total body images in the anterior and posterior projections and selected spot images were obtained. Diffuse, mildly increased tracer activity is seen throughout the mid to lower thoracic spine and at multiple levels of the lumbar spine, consistent with degenerative changes. Right knee prosthesis is noted. Degenerative changes are noted to the left knee and bilateral feet. Otherwise, distribution of tracer activity is unremarkable throughout the skeletal system. No abnormal accumulation of tracer is seen in the soft tissues or urinary tract. The kidneys are small. IMPRESSION: No scan evidence of metastatic bone disease. Signed by: Dr. Malena Watson M.D. on 04/24/2019 4:41 PM
== END ==
LOC: NM 10:15
PROVIDERS: ATTEND Urology
DX: C61 Malignant neoplasm of prostate (principal)
CPT/HCPCS: 36415; 74177; 78306; 82565; 84520; A9503; Q9967

== ENCOUNTER → 2019-05-25 | Outpatient (CLI) | payer MEDICARE ==
[~2019-05-25] MED LIST changes: -IOPAMIDOL 370 MG/ML 200 ML INFUS..BTL INJ ONE; -SODIUM CHLORIDE 0.9% 50ML 50 ML ONE
[2019-05-25 11:47] LABS: BLOOD UREA NITROGEN 13 mg/dL (7-26); BUN/CREATININE RATIO 13 (6-25); EST GLOMERULAR FILTRATION RATE > 60 ML/MIN (60-)
== END ==
LOC: MRI 11:13
PROVIDERS: ATTEND Internal Medicine Gastroenterology
DX: K86.9 Disease of pancreas, unspecified (principal)
CPT/HCPCS: 36415; 82565; 84520

== ENCOUNTER → 2019-06-13 | Day surgery (SDC) | payer MEDICARE ==
[~2019-06-13] MED LIST changes: +FLUOXETINE HCL20 M1 PO; +FUROSEMIDE40 MG PO; +MIDAZOLAM HCL 2 MG/2 ML VIAL ONE; +OMEGA-31000 MG PO; +POTASSIUM PO; +PRAMIPEXOLE D0.25 MG PO; +PROPOFOL IV EMULSION 10 MG/ML 20 ML VIAL ONE; +WARFARIN SODIUM3 MG PO; +[UNRECOGNIZED DRUG - OTHER] PO
[2019-06-13 09:10] LABS: INR 1.08; PROTHROMBIN TIME 14.5 seconds (11.9-14.5)
[2019-06-13 09:11] LABS: PARTIAL THROMBOPLASTIN TIME 28.5 seconds (23.8-35.5)
--- NOTE | 2019-06-13 16:01 | Operative Report ---
DATE OF PROCEDURE: 06/13/2019 SURGEON: Erlin Esposito MD PROCEDURE: Esophagogastroduodenoscopy with biopsies. INDICATIONS FOR PROCEDURE: Mass-like thickening GE junction on CT scan of abdomen. MEDICATIONS: The patient was done under MAC. Please see anesthesiologist's note. PROCEDURE IN DETAIL: With the patient in the left lateral decubitus position, a flexible fiberoptic Olympus gastroscope was introduced into the esophagus under direct visualization without any difficulty. There was some patchy erythema noted in distal esophagus. The GE junction appeared to be within normal limits and there was no mass noted. The scope was then advanced with ease into the stomach traversing a moderate-sized hiatal hernia. Mucosa overlying the antrum and the body revealed some patchy erythema, [id number] edema and biopsies were obtained and sent to stain for Helicobacter pylori. Pylorus was of normal contour and shape, was intubated with ease and the scope was advanced all the way to the second portion of the duodenum. The scope was then withdrawn slowly mucosa overlying the proximal second portion and the duodenal bulb appeared to be within normal limits. The scope was then withdrawn back into the stomach and retroflexed and the previously described hiatal hernia was also noted in the retroflexed position. The cardia appeared to be within normal limits. The scope was then straightened out. It was subsequently withdrawn. The patient tolerated the procedure well. IMPRESSION: 1. Mild distal esophagitis. 2. Moderate-sized hiatal hernia. 3. Gastritis, biopsied. Biopsies sent to stain for Helicobacter pylori. PLAN: Follow up histology. Continue Protonix 40 mg one p.o. q.a.m. before meals. Erlin Esposito MD [facility] [place] /[id number] cc: Omar Bledsoe DO
== END | disposition home or self-care (01) ==
LOC: OR 08:42
PROVIDERS: ATTEND Internal Medicine Gastroenterology
DX: K92.89 Other specified diseases of the digestive system (principal); K20.9 Esophagitis, unspecified; K44.9 Diaphragmatic hernia without obstruction or gangrene; K29.70 Gastritis, unspecified, without bleeding; Z88.5 Allergy status to narcotic agent; Z88.0 Allergy status to penicillin; E03.9 Hypothyroidism, unspecified; J45.909 Unspecified asthma, uncomplicated; K21.9 Gastro-esophageal reflux disease without esophagitis; Z95.810 Presence of automatic (implantable) cardiac defibrillator; I25.10 Atherosclerotic heart disease of native coronary artery without angina pectoris; I25.2 Old myocardial infarction; I10 Essential (primary) hypertension; Z01.812 Encounter for preprocedural laboratory examination
CPT/HCPCS: 36415; 43239; 85610; 85730; 88305; 88312; J2250; J2704